=== PATIENT | female | born 1955 | race Caucasian/White ===

== ENCOUNTER 2017-05-12 06:39 | Day surgery (SDC) | payer OTHER ==
[2017-05-06 16:49] VITALS: BMI 37.3
[~2017-05-12 06:39] MED LIST: BUPIVACAINE HCL/PF 0.5% (5MG/ML) 10 ML VIAL IJ ONE; ceFAZolin SODIUM 1 GM VIAL IVPB ONE
[2017-05-12] MEDS ORDERED: BUPIVACAINE HCL/PF 0.5% (5MG/ML) 10 ML VIAL ONE (07:21)
[2017-05-12 07:41] LABS: URINE APPEARANCE SLCLOUDY; URINE BILIRUBIN NEGATIVE (NEGATIVE); URINE BLOOD 1+ (NEGATIVE); URINE COLOR YELLOW; URINE GLUCOSE (UA) NEGATIVE (NEGATIVE); URINE KETONE NEGATIVE (NEGATIVE); URINE LEUK ESTERASE NEGATIVE (NEGATIVE); URINE NITRITE NEGATIVE (NEGATIVE); URINE PROTEIN NEGATIVE (NEGATIVE); URINE UROBILINOGEN NEGATIVE mg/dL (0.2-1.0)
[2017-05-12] MEDS ORDERED: PROPOFOL 20 ML ONE (07:49)
[2017-05-12] MEDS ORDERED: MIDAZOLAM HCL 2 MG/2 ML SINGLE DOSE VIAL ONE (07:50)
[2017-05-12] MEDS ORDERED: GLYCOPYRROLATE 0.2 MG/1 ML VIAL ONE (07:50)
[2017-05-12] MEDS ORDERED: LIDOCAINE HCL/PF 2% SDV 5ML VIAL ONE (07:51)
[2017-05-12] MEDS ORDERED: SCOPOLAMINE HYDROBROMIDE 1 PATCH PATCH.TD72 ONE (08:01)
[2017-05-12 08:03] LABS: URINE MUCUS RARE; URINE RBC 2 /hpf (0-3); URINE WBC 1 /hpf (3-5)
[2017-05-12] MEDS ORDERED: SCOPOLAMINE HYDROBROMIDE 1 PATCH PATCH.TD72 TD ONE (08:05)
[2017-05-12] MEDS ORDERED: DEXAMETHASONE SOD PHOSPHATE 4 MG/1 ML VIAL ONE (08:13)
[2017-05-12] MEDS ORDERED: SODIUM CHLORIDE 0.9% P/F 10 ML VIAL IJ ONE (08:21)
[2017-05-12] MEDS ORDERED: ceFAZolin SODIUM 1 GM VIAL ONE (08:21)
[2017-05-12] MEDS ORDERED: ceFAZolin SODIUM 1 GM VIAL IVPB ONE (08:24)
[2017-05-12] MEDS ORDERED: KETOROLAC TROMETHAMINE 30 MG/1 ML VIAL ONE (08:57)
[2017-05-12] MEDS ORDERED: BUPIVACAINE HCL/PF 0.5% (5MG/ML) 10 ML VIAL IJ ONE (09:05)
[2017-05-12] MEDS ORDERED: ONDANSETRON 4 MG/2 ML VIAL IVPUSH PRN (09:20)
[2017-05-12] MEDS ORDERED: PROMETHAZINE HCL 25 MG/1 ML VIAL IVPUSH PRN (09:20)
--- NOTE | 2017-05-12 09:20 | OP ---
Operative Note - Note: Operative Date: 05/12/17 Pre-Operative Diagnosis: right knee, MM and LM tears, OA Operation: right knee arthroscopy, partial medial and lateral meniscectomy, debridement chondroplasty Post-Operative Diagnosis: Same as Pre-op Surgeon: Jonas Diallo Anesthesiologist/BLASTING MACHINE OPERATOR: Nikos Colbert Anesthesia: General, Local Specimens Removed: shavings Estimated Blood Loss (mls): 0 Drains, Volume Out (mls): 0 Blood Volume Replaced (mls): 0 Fluid Volume Replaced (mls): 500 Operative Report Dictated: Yes
[2017-05-12] MEDS ORDERED: LACTATED RINGERS SOLUTION 1,000 ML IV SCH (09:30)
--- NOTE | 2017-05-12 10:00 | OP ---
DATE OF OPERATION: 05/12/2017 PREOPERATIVE DIAGNOSIS: Right knee medial and lateral meniscus tear and osteoarthritis. POSTOPERATIVE DIAGNOSIS: Right knee medial and lateral meniscus tear and osteoarthritis. PROCEDURE: Right knee arthroscopy, partial medial and lateral meniscectomy, and debridement chondroplasty. SURGEON: Jonas Diallo MD ASSISTANTS: None. ANESTHESIOLOGIST: Bertram Colbert MD ANESTHESIA: LMA anesthesia, local injection of 20 mL 0.50% Marcaine. DRAINS: None. COMPLICATIONS: None. SPECIMENS: Arthroscopic shavings. BLOOD LOSS: None. BLOOD GIVEN: None. FLUID REPLACEMENT: 500 mL INDICATION FOR SURGERY: This patient is a 61-year-old female with a preoperative diagnosis of right knee pain, medial and lateral meniscus tears, and osteoarthritis. After understanding the potential risks, complications, alternatives, and benefits of surgery versus nonsurgical treatment, the patient elected to undergo this procedure. DESCRIPTION OF PROCEDURE: Patient was brought to the operating room. Peripheral IV placed. IV sedation given. Two grams of IV Ancef were given. LMA anesthesia was induced. Right lower extremity was prepped and draped in a sterile fashion, elevated, exsanguinated with an Esmarch bandage. Tourniquet inflated to 275 mmHg. A superior medial outflow portal was established. A lateral portal was established. The arthroscope was then introduced into the joint under direct visualization using a spinal needle. A medial portal was established, and a diagnostic arthroscopy was performed. Patient was seen to have a significant complex tear of the posterior horn of the medial meniscus. Unfortunately, she had large areas of grade 4 chondromalacia of the medial femoral condyle and grade 3 changes of the medial tibial plateau. A gentle debridement chondroplasty was performed, and a partial medial meniscectomy was performed with a straight basket forceps, up-biting forceps, and shaver. Photographs taken before and after. The intracondylar notch looked good. The ACL looked good. It had the appropriate tension when probed. In the lateral compartment, the patient also had a complex tear of the anterior horn, body and posterior horn of the lateral meniscus. Using a combination of the straight basket forceps, right biter, left biter, and shaver, I did a subtotal lateral meniscectomy. At the end, I would estimate that she had 40% of her posterior horn remaining, 40% of the posterior half of the body remaining, and 0% of the anterior half of the body and 0% of the anterior horn of the lateral meniscus remaining. Photographs were taken before and after meniscectomy. Next, our attention turned to the patellofemoral joint. The patient had grade 4 chondromalacia on the undersurface of the patella as well as the femoral trochlea. Gentle debridement and chondroplasty were performed. Photographs taken. The area was copiously irrigated and washed out. All excess saline and debris removed. The arthroscopy portals were closed with 3-0 nylon sutures, and 20 mL of 0.50% Marcaine were introduced into the joint. The area was then washed and dried, covered with Xeroform, 4 x 4, Webril, and Joseluis bandage. Tourniquet was taken down after total tourniquet time of about 35 minutes. There were no complications during the case. The patient tolerated the procedure quite well and was brought to the ambulatory recovery room in stable condition. Miguel [id number]
[2017-05-12 12:29] VITALS: PULSE 91; TEMP 98.7
[2017-05-12 12:32] VITALS: BP 112/79
--- NOTE | 2017-05-13 15:19 | PATH ---
Surgical Pathology Report Patient Name: LUIS HERNANDEZ [facility]. Rec. #: [id number] /Age/Gender: 1955 (Age: 61) / F Account: [id number] Location: [facility] SUR[facility]ICAL Taken: 05/12/2017 Received: 05/12/2017 Reported: 05/13/2017 Physicians: Jonas Diallo M.D. Specimen(s) Received RIGHT KNEE SHAVINGS Clinical History Right knee tear Final Diagnosis SOFT TISSUE, RIGHT KNEE, ARTHROSCOPIC SHAVINGS: SYNOVIUM AND FIBROCARTILAGE WITH MYXOHYALINE DEGENERATION. Electronically Signed Harmeet Dunbar M.D. Gross Description Received in formalin, labeled "right knee shavings" is a 5.8 x 5.0 x 0.6 cm aggregate of cherry-yellow soft tissue fragments. A ambulatory service representative portion is submitted in one cassette. /05/12/201705/12/2017
== END 2017-05-12 12:30 | disposition home or self-care (01) ==
LOC: JASU-SURG 06:39
PROVIDERS: ATTEND Orthopaedic Surgery
PROC: 0SBC4ZZ Excision of Right Knee Joint, Percutaneous Endoscopic Approach (ICD-10-PCS; 2017-05-12)
PROC: 0SBC4ZZ Excision of Right Knee Joint, Percutaneous Endoscopic Approach (ICD-10-PCS; principal; 2017-05-12 08:00)
DX: M17.11 Unilateral primary osteoarthritis, right knee (principal); M23.200 Derangement of unspecified lateral meniscus due to old tear or injury, right knee; M23.203 Derangement of unspecified medial meniscus due to old tear or injury, right knee
CPT/HCPCS: 81003; 81015; 88304-TC; 94760; 97116-GP